=== PATIENT | female | born 1980 | race Caucasian/White ===

== ENCOUNTER 2019-07-09 15:18 | Emergency (ER) | payer MEDICAID ==
[~2019-07-09] VITALS: Ht 170.2 cm; Wt 95.3 kg
[2019-07-09 15:30] VITALS: BP 147/63
--- NOTE | 2019-07-09 15:34 | NUR ---
WHEEL CHAIR ASSISTED TO BED 7
--- NOTE | 2019-07-09 15:49 | NUR ---
38 YO FEMALE CO SINGLE SYCOPICAL EPISODE TODAY. PT STATES THAT SHE HAS HAD A COUGH, BODY ACHES AND FEVER FOR ABOUT 1 WEEK. SHE IS CURRENTLY TAKING PROMETHAZINE, CLARITIN AND IBUPROFEN. LUNG SOUNDS ARE CLEAR THROUGHOUT. PT IS LAYING IN BED WITH ONE SIDE RAIL UP FOR SAFETY.
[2019-07-09] MEDS ORDERED: ALBUTEROL SULFATE/IPRATROPIU 3 ML SOL IH ONE (16:00)
--- NOTE | 2019-07-09 16:00 | NUR ---
Dr. Cash is evaluating the patient at bedside.
--- NOTE | 2019-07-09 16:03 | NUR ---
RESP IS AT BEDSIDE
[2019-07-09] MEDS ORDERED: IBUPROFEN 800 MG TAB PO ONE (17:05)
[2019-07-09 17:31] VITALS: BP 147/63
--- NOTE | 2019-07-09 17:31 | NUR ---
Patient discharged with v/s stable. Written and verbal after care instructions given and explained. Patient alert, oriented and verbalized understanding of instructions. Ambulatory with steady gait. All questions addressed prior to discharge. ID band removed. Patient advised to follow up with PMD. Rx of PROMETHAZINE, ALBUTEROL AND PREDNISONE given. Patient educated on indication of medication including possible reaction and side effects. Opportunity to ask questions provided and answered. PAIN 2/10 PRIOR TO D/C.
== END 2019-07-09 17:31 | disposition home or self-care (01) ==
LOC: MED 15:18
DX: R05 Cough (principal); R50.9 Fever, unspecified; R07.0 Pain in throat
CPT/HCPCS: 71045; 93005; 94640; 99283; J7620; Q0092

== ENCOUNTER 2021-12-26 21:24 | Emergency (ER) | payer MEDICAID, OTHER ==
[~2021-12-26] VITALS: Ht 170.2 cm; Wt 104.3 kg
[2021-12-26 21:28] VITALS: BP 146/88
--- NOTE | 2021-12-26 21:37 | NUR ---
PT TAKEN TO BED 11
--- NOTE | 2021-12-26 21:57 | NUR ---
ERMD ALONSO AT BEDSIDE.
--- NOTE | 2021-12-26 22:12 | NUR ---
SWAB COLLECTED AND GIVEN TO KESHAV FROM LAB.
--- NOTE | 2021-12-26 22:12 | NUR ---
LAB AT BEDSIDE.
--- NOTE | 2021-12-26 22:13 | NUR ---
41 YO F BIB SELF WITH THE C/C OF 810 NONRAD LEFT SIDED CHEST PAIN X2HRS THAT BEGAN AT REST. PT DESCRIBES SHE WAS WATCHING TV WHEN SHE GOT A SUDDEN SHARP PAIN AND NUMBNESS. DENIES SOB. DENIES TAKING MEDICATION FOR PAIN. PT DENIES THIS HAPPENING IN PAST. DENIES HX, RX AND ALLERGIES
[2021-12-26 22:36] LABS: BASOPHILS # (AUTO) 0.1 K/uL (0.00-0.22); EOSINOPHILS # (AUTO) 0.2 K/uL (0-0.4); EOSINOPHILS % (AUTO) 2.3 % (0.0-4.0); HEMATOCRIT 41.4 % (36-48); HEMOGLOBIN 13.7 g/dL (12.0-16.0); LYMPHOCYTES # (AUTO) 1.9 K/uL (2.5-16.5); LYMPHOCYTES % (AUTO) 22.3 % (20.5-51.1); MEAN CORPUSCULAR HEMOGLOBIN 29 pg (27-31); MEAN CORPUSCULAR HGB CONC 33 g/dL (33-37); MEAN CORPUSCULAR VOLUME 88.4 fL (80-94); MONOCYTES # (AUTO) 0.8 K/uL (0.8-1.0); MONOCYTES % (AUTO) 10.1 % (1.7-9.3); NEUTROPHILS # (AUTO) 5.4 K/uL (1.8-7.7); NEUTROPHILS % (AUTO) 64.3 % (42.2-75.2); PLATELET COUNT (AUTO) 340 K/uL (140-450); RED BLOOD CELL COUNT(AUTO) 4.69 MIL/uL (4.20-5.40); RED CELL DISTRIBUTION WIDTH 14.1 % (11.6-13.7); WHITE BLOOD COUNT (AUTO) 8.4 K/uL (4.8-10.8)
[2021-12-26 22:50] LABS: ALBUMIN 3.6 g/dL (3.4-5.0); ANION GAP 10.2 (8-16); CARBON DIOXIDE 28.2 mmol/L (21-32); CREATININE 0.9 mg/dL (0.6-1.3); POTASSIUM 3.4 mmol/L (3.5-5.1); TOTAL BILIRUBIN 0.3 mg/dL (0.0-1.0)
[2021-12-26 22:52] LABS: PROTHROMBIN TIME 9.6 secs (10.8-13.4)
--- NOTE | 2021-12-27 00:23 | NUR ---
PT SITTING UP IN BED WAITING FOR PAPER WORK. ALL NEEDS MET AT THIS TIME.
[2021-12-27 01:21] VITALS: BP 148/84
--- NOTE | 2021-12-27 01:21 | NUR ---
Patient discharged with v/s stable. Written and verbal after care instructions given and explained. Patient verbalized understanding. Ambulatory with steady gait. All questions addressed prior to discharge. Advised to follow up with PMD.
== END 2021-12-27 01:21 | disposition home or self-care (01) ==
LOC: MED 21:24
DX: R07.9 Chest pain, unspecified (principal); Z20.822 Contact with and (suspected) exposure to COVID-19; R06.02 Shortness of breath
CPT/HCPCS: 36415; 71045; 80053; 81025; 83880; 84484; 85025; 85379; 85610; 85730; 93005; 99285